=== PATIENT | female | born 1995 | race Caucasian/White ===

== ENCOUNTER 2018-02-09 04:36 | Emergency (ER) | payer BC ==
--- NOTE | 2018-02-09 10:51 | RAD ---
RIGHT FOOT 3 VIEWS: HISTORY: Right foot injury. FINDINGS: Lisfranc joint alignment is anatomic. Pes planus on the lateral view. No acute fracture or dislocat ion. IMPRESSION: No acute osseous abnormalities are demonstrated. POS: [facility]
== END 2018-02-09 07:01 | disposition home or self-care (01) ==
LOC: ERS 04:36
DX: S90.111A Contusion of right great toe without damage to nail, initial encounter (principal); W20.8XXA Other cause of strike by thrown, projected or falling object, initial encounter